=== PATIENT | male | born 2000 | race Caucasian/White ===

== ENCOUNTER 2021-11-09 13:51 | Emergency (ER) | payer BC ==
[~2021-11-09 13:51] MED LIST: INVANZ 1 GM VIAL1 GM IV; NORCO 5-325 TA1 EACH PO; OMEPRAZOLE40 MG PO; ONDANSETRON HCL4 MG PO; PRILOSEC OTC20 MG PO
[2021-11-09 14:30] LABS: HEMOGLOBIN 15.1 gm/dl (14.0-17.5); RED BLOOD COUNT 4.87 M/UL (4.20-5.50); WHITE BLOOD COUNT 7.3 K/UL (4.5-11.0)
[2021-11-09 14:51] LABS: BUN/CREATININE RATIO 23 (0-10)
== END 2021-11-09 17:10 | disposition home or self-care (01) ==
LOC: ER1 13:51
PROVIDERS: Nurse Practitioner
DX: U07.1 COVID-19 (principal); K21.9 Gastro-esophageal reflux disease without esophagitis
CPT/HCPCS: 71045; 80053; 81001; 85025; 85379; 99285